=== PATIENT | male | born 1990 | race Two or more races ===

== ENCOUNTER 2021-03-11 10:01 | Emergency (ER) | payer MEDICAID ==
[~2021-03-11] VITALS: Ht 170.2 cm; Wt 79.8 kg
[2021-03-11 11:00] VITALS: BP 125/80
== END 2021-03-11 14:46 | disposition home or self-care (01) ==
LOC: ER 10:01
DX: U07.1 COVID-19 (principal); J02.9 Acute pharyngitis, unspecified